=== PATIENT | male | born 1985 | race Caucasian/White ===

== ENCOUNTER 2016-09-11 17:12 | Emergency (ER) | payer SELFPAY ==
--- NOTE | 2016-09-11 17:32 | ER Document Report ---
ED Medical Screen (RME) - General Chief Complaint: Alcohol Withdrawl Stated Complaint: WITHDRAWL Time seen by provider: 17:29 Mode of Arrival: Ambulatory Information source: Patient Notes: 31-year-old male presents to ED for detox from drugs. OxyContin, oxycodone, and marijuana. States he OxyContin 90 mg last today, marijuana yesterday and oxycodone 2 days ago. States he was to find himself back from these drugs. States she is not having any thoughts of hurting himself or anybody else. States he does not drink alcohol smokes about a half-pack a day.. I have greeted and performed a rapid initial assessment of this patient. A comprehensive ED assessment and evaluation of the patient, analysis of test results and completion of medical decision making process will be conducted by an additional ED providers.
[2016-09-11 18:11] LABS: ABSOLUTE EOSINOPHILS # (AUTO) 0.1 10^3/uL (0.0-0.6); ABSOLUTE LYMPHOCYTES (AUTO) 3.6 10^3/uL (0.5-4.7); ABSOLUTE MONOCYTES (AUTO) 0.8 10^3/uL (0.1-1.4); ABSOLUTE NEUT (AUTO) 4.6 10^3/uL (1.7-8.2); BASOPHILS % (AUTO) 0.5 % (0-2); EOSINOPHILS % (AUTO) 0.7 % (0-6); HEMATOCRIT 40.6 % (37.9-51.0); HEMOGLOBIN 14.1 g/dL (13.5-17.0); HGB HCT DIFFERENCE 1.7; LYMPHOCYTES % (AUTO) 39.4 % (13-45); MEAN CORPUSCULAR HEMOGLOBIN 31.3 pg (27.0-33.4); MEAN CORPUSCULAR HGB CONC 34.6 g/dL (32.0-36.0); MEAN CORPUSCULAR VOLUME 91 fl (80-97); MONOCYTES % (AUTO) 8.9 % (3-13); RED BLOOD COUNT 4.49 10^6/uL (4.35-5.55); RED CELL DISTRIBUTION WIDTH 14.7 % (11.5-14.0); SEGMENTED NEUTROPHILS % (AUTO) 50.5 % (42-78); WHITE BLOOD COUNT 9.2 10^3/uL (4.0-10.5)
[2016-09-11 18:16] LABS: APPEARANCE,URINE SLIGHTLY-CLOUDY; BILIRUBIN,URINE NEGATIVE (NEGATIVE); GLUCOSE, URINE NEGATIVE (NEGATIVE); KETONES,URINE NEGATIVE (NEGATIVE); LEUKOCYTE ESTERASE,URINE NEGATIVE (NEGATIVE); NITRITE,URINE NEGATIVE (NEGATIVE); PROTEIN,URINE NEGATIVE (NEGATIVE); URINE SPECIFIC GRAVITY 1.028; UROBILINOGEN,URINE NEGATIVE mg/dL (<2.0)
[2016-09-11 18:29] LABS: URINE BARBITURATES SCREEN NEGATIVE; URINE METHADONE SCREEN NEGATIVE; URINE OPIATES LOW UNCONFIRMED POSITIVE; URINE PHENCYCLIDINE SCREEN NEGATIVE
[2016-09-11 18:30] LABS: ALANINE AMINOTRANSFERASE 34 U/L (21-72); ALBUMIN 4.8 g/dL (3.5-5.0); ALKALINE PHOSPHATASE 65 U/L (38-126); ANION GAP 11 (5-19); ASPARTATE AMINO TRANSFERASE 23 U/L (17-59); BILIRUBIN,TOTAL 0.6 mg/dL (0.2-1.3); BLOOD UREA NITROGEN 10 mg/dL (7-20); CALCIUM 9.9 mg/dL (8.4-10.2); CARBON DIOXIDE 29 mmol/L (22-30); CHLORIDE 102 mmol/L (98-107); CREATININE RESULT 0.98 mg/dL (0.52-1.25); GLUCOSE 56 mg/dL (75-110); POTASSIUM 4.3 mmol/L (3.6-5.0); TOTAL PROTEIN 7.2 g/dL (6.3-8.2)
[2016-09-11 18:33] LABS: ALCOHOL < 10 mg/dL (NONE DETECTED)
--- NOTE | 2016-09-11 21:05 | ER Document Report ---
ED General - General Chief Complaint: Drug Abuse Stated Complaint: WITHDRAWL Time seen by provider: 20:45 Mode of Arrival: Ambulatory Information source: Patient Notes: 31-year-old male reports a long history of prescription narcotic abuse as well as marijuana use. He says he now wants to stop using because of concerns about his family. Last oxycodone use was this morning. He reports he has been calling around for week to try and find detox facilities but has not been able to find anyone who can take him. He denies alcohol use. He has no physical symptoms at the moment. Physical Exam: General: Alert, appears well. HEENT: Normocephalic. Atraumatic. PERRLA. Extraocular movements intact. Oropharynx clear. Neck: Supple. Non-tender. Respiratory: No respiratory distress. Clear and equal breath sounds bilaterally. Cardiovascular: Regular rate and rhythm. Abdominal: Normal Inspection. Soft, non-tender. No distension. Normal Bowel Sounds. Back: Non-tender. No deformity or step off. Extremities: Moves all four extremities. Upper extremities: Normal inspection. Non-tender. Normal color. Normal ROM. Normal temperature. Lower extremities: Normal inspection. Non-tender. No edema. Normal color. Normal ROM. Normal temperature. Neurological: Speech clear mentation normal moves all extremities well. Psychological: Normal affect. Normal Mood. Skin: Warm. Dry. Normal color. - Related Data Allergies/Adverse Reactions: No Known Allergies Allergy (Verified 09/11/16 17:37) Past Medical History - General Information source: Patient - Social History Smoking Status: Current Every Day Smoker Chew tobacco use (# tins/day): Yes Frequency of alcohol use: None Drug Abuse: Marijuana, Prescription drugs Family History: Other - Multiple family members with alcohol abuse Patient has suicidal ideation: No Patient has homicidal ideation: No - Past Medical History Cardiac Medical History: Reports: None Renal/ Medical History: Denies: Hx Peritoneal Dialysis Review of Systems - Review of Systems Constitutional: denies: Chills, Fever EENT: denies: Ear pain, Throat pain Cardiovascular: denies: Chest pain Respiratory: denies: Cough, Short of breath Gastrointestinal: denies: Abdominal pain, Nausea, Vomiting Genitourinary: denies: Burning Male Genitourinary: denies: Other Musculoskeletal: denies: Leg swelling Skin: denies: Rash Neurological/Psychological: denies: Weakness, Numbness Physical Exam - Vital signs Vitals: Temp Pulse Resp BP Pulse Ox 97.9 F 81 18 120/75 98 09/11/16 17:17 09/11/16 17:17 09/11/16 17:17 09/11/16 17:17 09/11/16 17:17 Course - Re-evaluation Re-evalutation: 09/11/16 21:02 Patient is medically clear. He is not suicidal, homicidal, or suffering any audiovisual hallucinations and does not require admission or further evaluation for any medical problem. I discussed with him that the treatment for narcotic use is to stop using narcotics but that the physical symptoms of withdrawal while not life-threatening may be unpleasant and we will prescribe medications to help with that. He is instructed to go to [facility] tomorrow to see what kind of help they can offer him. He does not need to return here as I am medically clearing him now - Vital Signs Vital signs: Temp Pulse Resp BP Pulse Ox 97.9 F 81 18 120/75 98 09/11/16 17:17 09/11/16 17:17 09/11/16 17:17 09/11/16 17:17 09/11/16 17:17 - Laboratory Result Diagrams: 09/11/16 17:40 09/11/16 17:40 Laboratory results interpreted by me: 09/11/16 09/11/16 17:40 17:40 RDW 14.7 H Glucose 56 L Salicylates < 1.0 L Acetaminophen < 10 L - EKG Interpretation by Me Additional EKG results interpreted by me: 09/11/16 21:02 EKG reviewed by myself sinus rhythm at 57 no acute changes Discharge - Discharge Clinical Impression: Drug abuse Condition: Stable Disposition: HOME, SELF-CARE Additional Instructions: You can walk into [facility] tomorrow to seek further assistance for drug abuse. We are prescribing medication that may help with nausea, vomiting, or muscle cramps which are some of the side effects you may get from narcotic withdrawal. Narcotic withdrawal is not life-threatening. To Whom It May Concern. This patient was seen and evaluated in the emergency department at [facility] on the evening of 09/11/2016 and is medically clear for any mental health disposition. Prescriptions: Gabapentin 300 mg PO BID PRN #20 capsule PRN Reason: Promethazine HCl [Phenergan 25 mg Tablet] 1 tab PO Q6H PRN #15 tablet PRN Reason:
[2016-09-11 21:25] VITALS: BP 113/65
--- NOTE | 2016-09-12 11:18 | EKG REPORT ---
SEVERITY:- NORMAL ECG - SINUS RHYTHM : Confirmed by: Marli Pitts 12-Sep-2016 11:18:00
== END 2016-09-11 21:25 | disposition home or self-care (01) ==
LOC: ER 17:12
DX: F11.10 Opioid abuse, uncomplicated (principal); F12.10 Cannabis abuse, uncomplicated; F17.200 Nicotine dependence, unspecified, uncomplicated
CPT/HCPCS: 36415; 80053; 80307; 81001; 85025; 93005; 93010; 99284

== ENCOUNTER 2019-12-15 14:19 | Emergency (ER) | payer OTHER ==
[2019-12-15 15:19] VITALS: BP 126/66
[2019-12-15] MEDS ORDERED: KETOROLAC TROMETHAMINE 60 MG/2 ML SDV IM ONE (15:28)
--- NOTE | 2019-12-15 15:30 | ER Document Report ---
ED Medical Screen (RME) - General Chief Complaint: Neck Pain >24hrs old Stated Complaint: NECK PAIN/INJURY- DIZZY Time Seen by Provider: 12/15/19 15:24 Notes: Patient is a 34-year-old male who presents to the emergency department with a chief complaint of mid upper back and neck pain and dizziness. Patient states that about 3 weeks ago he lifted a piece of sheet rock and felt a kink in his neck. States that it went away, but now it is worse. States that he has some numbness and tingling down his right arm. Exam: Tenderness noted to upper thoracic spine. I have greeted and performed a rapid initial assessment of this patient. A com prehensive ED assessment and evaluation of the patient, analysis of test results and completion of medical decision making process will be conducted by an additional ED providers. - Related Data Allergies/Adverse Reactions: No Known Allergies Allergy (Verified 12/15/19 15:23) Past Medical History Renal/ Medical History: Denies: Hx Peritoneal Dialysis - Immunizations Hx Diphtheria, Pertussis, Tetanus Vaccination: Yes Physical Exam - Vital signs Vitals: Temp Pulse Resp BP Pulse Ox 98.1 F 77 16 126/66 H 98 12/15/19 15:17 12/15/19 15:17 12/15/19 15:17 12/15/19 15:17 12/15/19 15:17 Course - Vital Signs Vital signs: Temp Pulse Resp BP Pulse Ox 98.1 F 77 16 126/66 H 98 12/15/19 15:17 12/15/19 15:17 12/15/19 15:17 12/15/19 15:17 12/15/19 15:17
[2019-12-15 16:00] LABS: ABSOLUTE EOSINOPHILS # (AUTO) 0.2 10^3/uL (0.0-0.6); ABSOLUTE LYMPHOCYTES (AUTO) 2.8 10^3/uL (0.5-4.7); ABSOLUTE MONOCYTES (AUTO) 0.9 10^3/uL (0.1-1.4); ABSOLUTE NEUT (AUTO) 4.8 10^3/uL (1.7-8.2); BASOPHILS % (AUTO) 0.4 % (0-2); EOSINOPHILS % (AUTO) 2.2 % (0-6); HEMATOCRIT 41.3 % (37.9-51.0); HEMOGLOBIN 14.6 g/dL (13.5-17.0); LYMPHOCYTES % (AUTO) 31.7 % (13-45); MEAN CORPUSCULAR HEMOGLOBIN 33.3 pg (27.0-33.4); MEAN CORPUSCULAR HGB CONC 35.2 g/dL (32.0-36.0); MEAN CORPUSCULAR VOLUME 95 fl (80-97); MONOCYTES % (AUTO) 10.8 % (3-13); PLATELET COUNT 232 10^3/uL (150-450); RED BLOOD COUNT 4.37 10^6/uL (4.35-5.55); RED CELL DISTRIBUTION WIDTH 13.7 % (11.5-14.0); SEGMENTED NEUTROPHILS % (AUTO) 54.9 % (42-78); TOTAL CELLS COUNTED % (AUTO) 100 %; WHITE BLOOD COUNT 8.7 10^3/uL (4.0-10.5)
[2019-12-15 16:04] LABS: AMORPHOUS SEDIMENT,URINE 1+ /HPF; APPEARANCE,URINE TURBID; BILIRUBIN,URINE NEGATIVE (NEGATIVE); COLOR,URINE YELLOW; GLUCOSE, URINE NEGATIVE (NEGATIVE); KETONES,URINE NEGATIVE (NEGATIVE); LEUKOCYTE ESTERASE,URINE NEGATIVE (NEGATIVE); NITRITE,URINE NEGATIVE (NEGATIVE); PROTEIN,URINE NEGATIVE (NEGATIVE); URINE SPECIFIC GRAVITY 1.016; UROBILINOGEN,URINE NEGATIVE mg/dL (<2.0)
[2019-12-15 16:18] LABS: ALBUMIN 4.7 g/dL (3.5-5.0); ALKALINE PHOSPHATASE 65 U/L (38-126); ANION GAP 5 (5-19); ASPARTATE AMINO TRANSFERASE 21 U/L (17-59); BILIRUBIN,TOTAL 0.4 mg/dL (0.2-1.3); BLOOD UREA NITROGEN 13 mg/dL (7-20); CALCIUM 9.8 mg/dL (8.4-10.2); CARBON DIOXIDE 31 mmol/L (22-30); CHLORIDE 102 mmol/L (98-107); POTASSIUM 4.7 mmol/L (3.6-5.0); TOTAL PROTEIN 6.9 g/dL (6.3-8.2)
[2019-12-15 16:21] LABS: GLUCOSE 61 mg/dL (75-110)
--- NOTE | 2019-12-15 18:35 | EKG REPORT ---
SEVERITY:- NORMAL ECG - SINUS RHYTHM : Confirmed by: Jonn Marroquin MD 15-Dec-2019 18:34:17
--- NOTE | 2019-12-15 20:25 | RADIOLOGY REPORT (SQ) ---
EXAM DESCRIPTION: CT CERVICAL SPINE WITHOUT IV CONTRAST COMPLETED DATE/TME: 12/15/2019 19:44 CLINICAL HISTORY: 34 years, Male, neck pain after lifing, paresthesias, COMPARISON: None. TECHNIQUE: Noncontrast CT cervical spine was acquired. Coronal and sagittal reformations were created. Images stored on PACS. All CT scanners at this facility use dose modulation, iterative reconstruction, and/or weight based dosing when appropriate to reduce radiation dose to as low as reasonably achievable (ALARA). [facility]: Dose Right [facility]: CareDose [facility]: Dose Right [facility]: Teradose 4D [facility]: [employer] LIMITATIONS: None. FINDINGS: Limited evaluation of the posterior fossa structures reveals no suspicious abnormality. Occipital condyles are normal. Lateral masses of C1 and C2 align properly. Base and tip of the dens are intact. Craniocervical alignment is maintained. Cervical vertebral body heights and alignments are maintained. No acute fracture or malalignment is appreciated. Intervertebral disc spaces are also well maintained. Paravertebral soft tissues show no suspicious abnormality. Visualized lung apices are clear. IMPRESSION: No acute abnormality within the cervical spine. TECHNICAL DOCUMENTATION: Quality ID # 436: Final reports with documentation of one or more dose reduction techniques (e.g., Automated exposure control, adjustment of the mA and/or kV according to patient size, use of iterative reconstruction technique) copyright 2011 [employer]- All Rights Reserved
--- NOTE | 2019-12-15 20:45 | ER Document Report ---
ED General - General Chief Complaint: Dizziness Stated Complaint: NECK PAIN/INJURY- DIZZY Time Seen by Provider: 12/15/19 15:24 Notes: Patient is a 34 year old male who presents to the ED complaining of neck pain for the past 3 weeks that started after lifting sheetrock at work. Patient states the pain came on suddenly while lifting sheet rock. States that when he touches the bottom of the center of his neck it causes of severe pain that feels like a "wasp sting." Patient states that he does have intermittent numbness of his arms bilaterally, states that it is in a glove type distribution over his hands and it will come on quickly and then go away quickly. States that the pain will sometimes radiate partially down his back. Also states that when he crosses his left leg over his right leg his left leg will go numb within 30 seco nds however when he uncrosses it it feels better. Denies any weakness, denies any difficulty functioning on a daily basis, denies any bowel or bladder dysfunction. Has a known history of 3 degenerative disks in his neck per x-rays from a chiropractor several years ago. Pain has not improved after using ibuprofen, Aleve and Motrin. States that it will go away for a short period of time but then come back after 2 to 3 hours. - Related Data Allergies/Adverse Reactions: No Known Allergies Allergy (Verified 12/15/19 15:23) Past Medical History - General Information source: Patient - Social History Smoking Status: Current Every Day Smoker Chew tobacco use (# tins/day): No Frequency of alcohol use: None Drug Abuse: None Family History: Other - Multiple family members with alcohol abuse Patient has homicidal ideation: No Renal/ Medical History: Denies: Hx Peritoneal Dialysis Past Surgical History: Reports: Hx Orthopedic Surgery - bilateral hips - Immunizations Hx Diphtheria, Pertussis, Tetanus Vaccination: Yes Review of Systems - Review of Systems Constitutional: No symptoms reported Musculoskeletal: See HPI Neurological/Psychological: See HPI -: Yes All other systems reviewed and negative Physical Exam - Vital signs Vitals: Temp Pulse Resp BP Pulse Ox 98.1 F 77 16 126/66 H 98 12/15/19 15:17 12/15/19 15:17 12/15/19 15:17 12/15/19 15:17 12/15/19 15:17 Interpretation: Normal - Notes Notes: GENERAL: Alert, interacts well. No acute distress. HEAD: Normocephalic, atraumatic EYES: Pupils equal, round and reactive to light, extraocular movements intact. ENT: Oral mucosa moist, tongue midline. NECK: Full range of motion, supple, trachea midline. LUNGS: Clear to auscultation bilaterally, no wheezes, rales or rhonchi, no respiratory distress. HEART: Regular rate and rhythm, no murmurs, gallops, rubs. ABDOMEN: Soft, nontender, nondistended, bowel sounds present in all 4 quadrants. BACK: Bony tenderness to palpation around C5-T1 with very light touch, no step- offs or deformities, no lesions noted, no signs of trauma. Complains of increased pain with axial loading though there are no changes in sensation and no report of "stingers". EXTREMITIES: Moves all 4 extremities spontaneously, no edema, radial and dorsalis pedis pulses 2/4 bilaterally. No cyanosis. NEUROLOGICAL: Alert and oriented x3, normal speech, biceps and patellar DTRs 2+ bilaterally. 5 x 5 muscle strength all 4 extremities, sensation intact. PSYCH: Normal mood, normal affect. SKIN: Warm, Dry, normal turgor, no rashes or lesions noted. Course - Re-evaluation Re-evalutation: 12/15/19 21:[address] 12/15/19 19:44 IMPRESSION: No acute abnormality within the cervical spine. TECHNICAL DOCUMENTATION: Quality ID # 436: Final reports with documentation of one or more dose reduction techniques (e.g., Automated exposure control, adjustment of the mA and/or kV according to patient size, use of iterative reconstruction technique) copyright 2011 [employer]- All Rights Reserved CT scan unremarkable, no evidence of acute nerve impingement on physical examination, no indication for emergent MRI. Discussed with patient that we will try muscle relaxers and given his intermittent radicular symptoms a short course of steroids, patient should follow-up with his primary care physician in 3 weeks if the pain is still there. Return for any new neurologic symptoms. - Vital Signs Vital signs: Temp Pulse Resp BP Pulse Ox 98.1 F 77 16 126/66 H 98 12/15/19 15:24 12/15/19 15:17 12/15/19 15:17 12/15/19 15:17 12/15/19 15:17 - Laboratory Result Diagrams: 12/15/19 15:40 12/15/19 15:40 Laboratory results interpreted by me: 12/15/19 15:40 Carbon Dioxide 31 H Glucose 61 L Discharge - Discharge Clinical Impression: Neck pain Condition: Stable Disposition: HOME, SELF-CARE Additional Instructions: Today would not find any evidence of broken bones in your neck. Your CAT scan actually shows that your disc spaces are well maintained. There is no evidence of a significantly herniated disc at this time. Currently I would like you to continue taking ibuprofen 800 mg every 8 hours as needed for pain, do not combine this with Motrin or Aleve which are either identical or very similar drugs. You may also take acetaminophen 1000 mg every 6 hours as needed for pain. I have also placed you on a muscle relaxer called Robaxin. This may help with some of your pain. The steroids may also help with some of the pain. If you develop numbness in your arms that stays for more than a few minutes, any weakness in your arms or legs or any difficulty using the bathroom please return to the emergency department. If you are continuing to have significant pain after 3 more weeks please follow-up with your primary care physician. They may wish to consider an MRI as an outpatient. Prescriptions: Methocarbamol [Robaxin 750 mg Tablet] 1 - 2 tab PO Q8HP PRN #40 tablet PRN Reason: Prednisone [Deltasone 20 mg Tablet] 40 mg PO DAILY #10 tablet
== END 2019-12-15 21:47 | disposition home or self-care (01) ==
LOC: ER 14:19
DX: M54.2 Cervicalgia (principal); R42 Dizziness and giddiness; F17.200 Nicotine dependence, unspecified, uncomplicated
CPT/HCPCS: 93005; 99284; 96372; 36415; 82962; 85025; 80053; 81001; 72125; 93010; J1885